=== PATIENT | female | born 2000 | race American Indian/Alaskan Native ===

== ENCOUNTER 2021-04-08 09:39 | Inpatient (IN) | payer OTHER ==
[2021-04-08 12:12] LABS: Bilirubin,Urine NEG (Negative); Blood,Urine NEG (Negative); Color,Urine Yellow (Yellow); Protein,Urine <15 mg/dL mg/dL (Negative); Urobilinogen,Urine < 2.0 mg/dL (<2.0)
[2021-04-08] MEDS ORDERED: FAMOTIDINE 20 MG TAB PO ONE (12:14)
[2021-04-08] MEDS ORDERED: HYOSCYAMINE SUBL 0.125 MG TAB SL ONE (12:14)
[2021-04-08] MEDS ORDERED: ONDANSETRON 4 MG ODT TAB PO ONE (12:14)
[2021-04-08] MEDS ORDERED: ALUM-MAG HYDROXIDE-SIMETHICONE 200-200-20MG/5ML ORAL LIQD 30 ML PO ONE (12:14)
[2021-04-08 12:36] LABS: Basophils % (Auto) 0.4 % (0.0-1.8); Eosinophils % (Auto) 0.7 % (0.0-4.3); Hemoglobin 13.8 gm/dl (10.1-14.3); Lymphocytes % (Auto) 17.1 % (13.4-35.0); Mean Corpuscular HGB Conc 34 % (30-34); Mean Corpuscular Volume 90 fl (79-97); Monocytes # (Auto) 0.3 K/mm3 (0.0-0.8); Monocytes % (Auto) 5.9 % (0.0-7.3); Platelet Count 251 K/mm3 (140-440); Red Blood Count 4.57 M/mm3 (3.65-5.03); Red Cell Distribution Width 12.9 % (13.2-15.2)
[2021-04-08 12:41] LABS: Albumin 4.8 g/dL (3.9-5); Blood Urea Nitrogen 9 mg/dL (7-17); Calcium 10.5 mg/dL (8.4-10.2); Hemolysis Index 4
[2021-04-08 12:43] LABS: BUN/Creatinine Ratio 15
[2021-04-08 12:53] LABS: Alanine Aminotransferase 1883 units/L (7-56)
--- NOTE | 2021-04-08 13:16 | Emergency Department Report ---
ED Abdominal Pain HPI - General Chief Complaint: Abdominal Pain Stated Complaint: STOMACH BACK PAIN Time Seen by Provider: 04/08/21 10:37 Source: patient Mode of arrival: Ambulatory Limitations: No Limitations - History of Present Illness Initial Comments: Patient is a 20-year-old female who presents emergency room with complaints of upper abdominal pain that began a couple days ago. Patient states that she has had similar pain before and states that in [place] she was diagnosed with acid reflux and possible ulcer. She states that she also frequently has gas pain. She denies any nausea, vomiting, diarrhea, hematochezia, melena, hematemesis, fever, urinary symptoms. No other past medical history. No allergies to medications. Severity scale (0 -10): 9 - Related Data Allergies Allergy/AdvReac Type Severity Reaction Status Date / Time No Known Allergies Allergy Unverified 04/08/21 10:21 ED Review of Systems ROS: Stated complaint: STOMACH BACK PAIN Other details as noted in HPI Comment: All other systems reviewed and negative ED Past Medical Hx - Past Medical History Previous Medical History?: Yes Hx Asthma: Yes - Surgical History Past Surgical History?: No ED Physical Exam - General Limitations: No Limitations General appearance: alert, in no apparent distress - Head Head exam: Present: atraumatic, normocephalic - Eye Eye exam: Present: normal appearance - ENT ENT exam: Present: mucous membranes moist - Respiratory Respiratory exam: Present: normal lung sounds bilaterally. Absent: respiratory distress, wheezes, rales, rhonchi, stridor, chest wall tenderness, accessory muscle use, decreased breath sounds, prolonged expiratory - Cardiovascular Cardiovascular Exam: Present: regular rate, normal rhythm, normal heart sounds. Absent: systolic murmur, diastolic murmur, rubs, gallop - GI/Abdominal GI/Abdominal exam: Present: soft, tenderness (upper abd pain ), normal bowel sounds. Absent: distended, guarding, rebound, rigid - Neurological Exam Neurological exam: Present: alert, oriented X3 - Psychiatric Psychiatric exam: Present: normal affect, normal mood - Skin Skin exam: Present: warm, dry, intact ED Course Vital Signs 04/08/21 04/08/21 10:23 17:03 Temperature 98.3 F Pulse Rate 78 Respiratory 18 16 Rate Blood Pressure 137/87 [Right] O2 Sat by Pulse 99 Oximetry - Consultations Consultation #1: 04/08/21 17:[address] Bob, GI regarding patient presentation and results, he advised to order MRCP, admit to hospitalist, order hepatitis panel, salicylate, Tylenol and he will evaluate patient tomorrow 04/08/21 17:[address] Cedeno, hospitalist who will accept and resume care of patient, will admit to hospital service ED Medical Decision Making - Lab Data Result diagrams: 04/08/21 11:26 04/08/21 11:26 - Radiology Data Radiology results: report reviewed ULTRASOUND ABDOMEN, LIMITED (RIGHT UPPER QUADRANT) INDICATION / CLINICAL INFORMATION: upper abd pain, elevated Lfts, abnormal CT. COMPARISON: CT from earlier in the day FINDINGS: PANCREAS: Visualized portion shows no significant abnormality. LIVER: No significant abnormality. GALLBLADDER: Multiple gallsto tr. No significant gallbladder wall thickening. No pericholecystic fluid. BILE DUCTS: No significant abnormality. Common bile duct measures 6 mm. FREE FLUID: None. ADDITIONAL FINDINGS: None. IMPRESSION: 1. Cholelithiasis without cholecystitis. Signer Name: Nato Gomez DO Signed: 04/08/2021 3:11 PM Workstation Name: [id number] Ordering Physician: KELLY SWANN Date of Service: 04/08/21 Procedure(s): CT abdomen pelvis w con Accession Number(s): [id number] cc: KELLY SWANN CT abdomen pelvis w con INDICATION: upper abd pain, elevated lfts OMNI 300 100 ML. COMPARISON: None TECHNIQUE: Abdominal and pelvic CT exam performed. All CT scans at this location are performed using CT dose reduction for ALARA by means of automated exposure control. FINDINGS: CT ABDOMEN and PELVIS: Lung Bases: No significant abnormality. Liver: Minimal intrahepatic biliary ductal dilation. Biliary: No calcified gallstones. There is minimal increased attenuation seen within the fundus the gallbladder which could represent small stones (sagittal imaging 83 and 84 series 602). Common bile duct appears mildly dilated at 8 mm. Spleen: No significant abnormality. Pancreas: No significant abnormality. Adrenals: No significant abnormality. Kidneys: No significant abnormality. Lymphatics: No lymphadenopathy. Vasculature: No significant abnormality. Bowel: No significant abnormality. Normal appendix. Pelvis: No significant abnormality. Osseous Structures: No aggressive osseous lesion. Additional Findings: None IMPRESSION: 1. Minimal intrahepatic and extra hepatic biliary ductal dilatation. Possible gallstones without evidence of cholecystitis. Correlate for cholestatic labs and consider right upper quadrant ultrasound Signer Name: Wilbert Cervantes MD Signed: 04/08/2021 2:20 PM Workstation Name: [email or web address] Transcribed By: REMBERTO Dictated By: Wilbert Cervantes MD Electronically Authenticated By: Wilbert Cervantes MD Signed Date/Time: 04/08/21 142 DD/ 15 TD/TT: - Medical Decision Making Patient is a 20-year-old female who presents emergency room with complaints of upper abdominal pain that began a couple days ago. Patient states that she has had similar pain before and states that in [place] she was diagnosed with acid reflux and possible ulcer. She states that she also frequently has gas pain. She denies any nausea, vomiting, diarrhea, hematochezia, melena, hematemesis, fever, urinary symptoms. No other past medical history. No allergies to medications. Vitals are normal. On exam patient has generalized upper abdominal tenderness palpation, no guarding, no rebound, no rigidity, no masses, no peritoneal signs. lab significant for elevated LFTs, no leukocytosis. CT abdomen pelvis with IV contrast: 1. Minimal intrahepatic and extra hepatic biliary ductal dilatation. Possible gallstones without evidence of cholecystitis. Correlate for cholestatic labs and consider right upper quadrant ultrasound. ultrasound right upper quadrant:IMPRESSION: 1. Cholelithiasis without cholecystitis. Spoke to Dr. Bob, GI regarding patient presentation and results, he advised to order MRCP, admit to hospitalist, order hepatitis panel, salicylate, Tylenol and he will evaluate patient tomorrow, Spoke to Dr. Lee Ann caballero, hospitalist who will accept and resume care of patient, will admit to hospital service. Discussed all findings with patient and she is agreeable with admission. Discussed case with Dr. De León, ER attending who is in agreement with plan. Critical care attestation.: If time is entered above; I have spent that time in minutes in the direct care of this critically ill patient, excluding procedure time. ED Disposition Clinical Impression: Elevated LFTs, Intrahepatic bile duct dilation Abdominal pain Qualifiers: Abdominal location: upper abdomen, unspecified Qualified Code(s): R10.10 - Upper abdominal pain, unspecified Cholelithiasis Qualifiers: Cholelithiasis location: gallbladder and bile duct Cholecystitis presence: with cholecystitis Cholecystitis acuity: acute Biliary obstruction: with biliary obstruction Qualified Code(s): K80.63 - Calculus of gallbladder and bile duct with acute cholecystitis with obstruction Disposition: [facility] Is pt being admited?: Yes Does the pt Need Aspirin: No Condition: Stable Time of Disposition: 17:14
[2021-04-08 13:31] LABS: HCG Qualitative,Urine Negative (Negative)
--- NOTE | 2021-04-08 14:24 | Cat Scan Report ---
CT abdomen pelvis w con INDICATION: upper abd pain, elevated lfts OMNI 300 100 ML. COMPARISON: None TECHNIQUE: Abdominal and pelvic CT exam performed. All CT scans at this location are performed using CT dose reduction for ALARA by means of automated exposure control. FINDINGS: CT ABDOMEN and PELVIS: Lung Bases: No significant abnormality. Liver: Minimal intrahepatic biliary ductal dilation. Biliary: No calcified gallstones. There is minimal increased attenuation seen within the fundus the g allbladder which could represent small stones (sagittal imaging 83 and 84 series 602). Common bile du ct appears mildly dilated at 8 mm. Spleen: No significant abnormality. Pancreas: No significant abnormality. Adrenals: No significant abnormality. Kidneys: No significant abnormality. Lymphatics: No lymphadenopathy. Vasculature: No significant abnormality. Bowel: No significant abnormality. Normal appendix. Pelvis: No significant abnormality. Osseous Structures: No aggressive osseous lesion. Additional Findings: None IMPRESSION: 1. Minimal intrahepatic and extra hepatic biliary ductal dilatation. Possible gallstones without evid ence of cholecystitis. Correlate for cholestatic labs and consider right upper quadrant ultrasound Signer Name: Wilbert Cervantes MD Signed: 04/08/2021 2:20 PM Workstation Name: [email or web address]
[2021-04-08] MEDS ORDERED: SODIUM CHLORIDE 0.9% 1000 ML 1,000 ML IV ONE (14:36)
[2021-04-08] MEDS ORDERED: ONDANSETRON 4 MG/2 ML INJ IV ONE ×2 (14:36→16:48)
[2021-04-08] MEDS ORDERED: MORPHINE 4 MG/1 ML INJ IV ONE ×2 (14:36→16:48)
[2021-04-08] MEDS ORDERED: hydrALAZINE 20 MG/1 ML INJ IV PRN (17:34)
[2021-04-08] MEDS ORDERED: ACETAMINOPHEN 325 MG TAB PO PRN (17:34)
--- NOTE | 2021-04-08 17:36 | History and Physical Report ---
History of Present Illness Date of examination: 04/08/21 History of present illness: Patient is a 20-year-old female who presents emergency room with complaints of upper abdominal pain that began a couple days ago. Patient states that she has had similar pain before and states that in [place] she was diagnosed with acid reflux and possible ulcer. She states that she also frequently has gas pain. She denies any nausea, vomiting, diarrhea, hematochezia, melena, hematemesis, fever, urinary symptoms. No other past medical history. No allergies to medications. Medications and Allergies Allergies Allergy/AdvReac Type Severity Reaction Status Date / Time No Known Allergies Allergy Unverified 04/08/21 10:21 Active Meds: Active Medications Acetaminophen (Acetaminophen 325 Mg Tab) 650 mg PO Q4H PRN PRN Reason: Pain MILD(1-3)/Fever >100.5/HINSON Heparin Sodium (Porcine) (Heparin 5,000 Unit/1 Ml Vial) 5,000 unit SUB-Q Q8HR DIANE Hydralazine HCl (Hydralazine 20 Mg/1 Ml Inj) 5 mg IV Q30MIN PRN PRN Reason: Hypertension Ceftriaxone Sodium (Rocephin/Ns 1 Gm/50 Ml) 1 gm in 50 mls @ 100 mls/hr IV Q12HR DIANE; Protocol Sodium Chloride (Nacl 0.9% 1000 Ml) 1,000 mls @ 100 mls/hr IV DIRECT DIANE Morphine Sulfate (Morphine 2 Mg/1 Ml Inj) 2 mg IV Q3H PRN PRN Reason: Pain, Moderate (4-6) Exam - Constitutional Vitals: Temp Pulse Resp BP Pulse Ox 98.3 F 78 16 137/87 99 04/08/21 10:23 04/08/21 10:23 04/08/21 17:03 04/08/21 10:23 04/08/21 10:23 Results - Labs CBC & Chem 7: 04/08/21 11:26 04/08/21 11:26 Labs: Abnormal lab results 04/08/21 04/08/21 04/08/21 Range/Units 11:14 11:26 11:26 RDW 12.9 L (13.2-15.2) % Lymph # (Auto) 1.0 L (1.2-5.4) K/mm3 Seg Neutrophils % 75.9 H (40.0-70.0) % Calcium 10.5 H (8.4-10.2) mg/dL Total Bilirubin 2.60 H (0.1-1.2) mg/dL AST 1250 H (5-40) units/L ALT 1883 H (7-56) units/L Alkaline Phosphatase 144 H (35-129) units/L Ur Specific [place] 1.002 L (1.003-1.030) Urine WBC (Auto) 26.0 H (0.0-6.0) /HPF Assessment and Plan Upper abdominal pain Intra and extrahepatic biliary dilation Cholelithiasis with elevated LFT History of asthma Chronic anemia DVT prophylaxis
[2021-04-08 20:48] LABS: Amphetamine Screen,Urine PRESUMPTIVE NEGATIVE; Benzodiazepines Screen,Urine PRESUMPTIVE POSITIVE; Cannabinoid Screen,Urine PRESUMPTIVE NEGATIVE; Cocaine Screen,Urine PRESUMPTIVE NEGATIVE; Methadone Screen,Urine PRESUMPTIVE NEGATIVE; Opiate Screen,Urine PRESUMPTIVE NEGATIVE
[2021-04-08 21:03] LABS: Hepatitis C Virus Antibody Non-Reactive (NonReactive)
[2021-04-08 21:12] LABS: Hepatitis B Surface Antigen Nonreactive (Negative)
[2021-04-08] MEDS ORDERED: METOCLOPRAMIDE 10 MG/2 ML INJ IV ONE (23:31)
[2021-04-08] MEDS: cefTRIAXone/NS 1 GM/50 ML 1 GM/50 ML BAG IV SCH (23:31)
[2021-04-08] MEDS: HEPARIN 5,000 UNIT/1 ML VIAL SUB-Q SCH (23:31)
[2021-04-08] MEDS ORDERED: METOCLOPRAMIDE 10 MG/2 ML INJ ONE (23:32)
[2021-04-09 05:31] LABS: Albumin 4.1 g/dL (3.9-5); Bilirubin,Direct 2.6 mg/dL (0-0.2)
[2021-04-09] MEDS: HEPARIN 5,000 UNIT/1 ML VIAL SUB-Q SCH ×3 (06:18→22:54)
--- NOTE | 2021-04-09 08:33 | Gastroenterology Consultation ---
History of Present Illness - Reason for Consult Consult date: 04/09/21 elevated lft, abd pain Requesting physician: ALIYA SALINAS - History of Present Illness Is a pleasant 20-year-old female presenting with abdominal pain She reports having issues since September Would have abdominal pain that was diagnosed as gas was given medication to help saw a different doctor given a different medication did not help so just kept on taking the gas medication She reports the pain had been controlled and then approximately 2 days ago had upper abdominal pain that was severe sharp in nature no alleviating or exacerbating factors Denies history of liver disease or gallbladder disease Reviewed patient's medication history extensively she reports no new medications just takes gas medication Obtained/updated/reviewed patient's current medications Past History Past Surgical History: No surgical history Social history: no significant social history Family history: no significant family history Medications and Allergies Allergies Allergy/AdvReac Type Severity Reaction Status Date / Time No Known Allergies Allergy Unverified 04/08/21 10:21 Active Meds: Active Medications Acetaminophen (Acetaminophen 325 Mg Tab) 650 mg PO Q4H PRN PRN Reason: Pain MILD(1-3)/Fever >100.5/HINSON Heparin Sodium (Porcine) (Heparin 5,000 Unit/1 Ml Vial) 5,000 unit SUB-Q Q8HR DIANE Last Admin: 04/09/21 06:18 Dose: 5,000 unit Documented by: Hydralazine HCl (Hydralazine 20 Mg/1 Ml Inj) 5 mg IV Q30MIN PRN PRN Reason: Hypertension Ceftriaxone Sodium (Rocephin/Ns 1 Gm/50 Ml) 1 gm in 50 mls @ 100 mls/hr IV Q24H DIANE; Protocol Last Admin: 04/08/21 23:31 Dose: 100 mls/hr Documented by: Sodium Chloride (Nacl 0.9% 1000 Ml) 1,000 mls @ 100 mls/hr IV DIRECT DIANE Morphine Sulfate (Morphine 2 Mg/1 Ml Inj) 2 mg IV Q3H PRN PRN Reason: Pain, Moderate (4-6) Review of Systems - Review of Systems All systems: negative (10 Systems reviewed and negative except as mentioned above in the history of present illness) Exam - Constitutional Vital Signs: Temp Pulse Resp BP Pulse Ox 98.3 F 65 14 99/54 100 04/08/21 10:23 04/09/21 03:00 04/09/21 03:00 04/09/21 03:00 04/09/21 03:00 General appearance: no acute distress, obese - EENT Eyes: EOM intact - Neck Neck: supple - Respiratory Respiratory effort: normal - Cardiovascular Rhythm: regular - Gastrointestinal General gastrointestinal: Present: soft, tender (Mild tenderness epigastric/right upper quadrant) - Integumentary Integumentary: Present: dry - Neurologic Neurological: alert and oriented x3 - Psychiatric Psychiatric: appropriate mood/affect - Labs CBC & Chem 7: 04/08/21 11:26 04/08/21 11:26 Lab Results: Laboratory Results - last 24 hr 04/08/21 04/08/21 04/08/21 11:14 11:14 11:26 WBC 5.9 RBC 4.57 Hgb 13.8 Hct 41.0 MCV 90 MCH 30 MCHC 34 RDW 12.9 L Plt Count 251 Lymph % (Auto) 17.1 [place] % (Auto) 5.9 Eos % (Auto) 0.7 Baso % (Auto) 0.4 Lymph # (Auto) 1.0 L [place] # (Auto) 0.3 Eos # (Auto) 0.0 Baso # (Auto) 0.0 Seg Neutrophils % 75.9 H Seg Neutrophils # 4.5 Sodium Potassium Chloride Carbon Dioxide Anion Gap BUN Creatinine Estimated GFR BUN/Creatinine Ratio Glucose Calcium Total Bilirubin Direct Bilirubin Indirect Bilirubin AST ALT Alkaline Phosphatase Total Protein Albumin Albumin/Globulin Ratio Lipase Urine Color Yellow Urine Turbidity Clear Urine pH 7.0 Ur Specific [place] 1.002 L Urine Protein <15 mg/dl Urine Glucose (UA) Neg Urine Ketones Neg Urine Blood Neg Urine Nitrite Neg Urine Bilirubin Neg Urine Urobilinogen < 2.0 Ur Leukocyte Esterase Neg Urine WBC (Auto) 26.0 H Urine RBC (Auto) 16.0 U Epithel Cells (Auto) 1.0 Urine HCG, Qual Negative Salicylates Urine Opiates Screen Presumptive negative Urine Methadone Screen Presumptive negative Acetaminophen Ur Barbiturates Screen Presumptive negative Ur Phencyclidine Scrn Presumptive negative Ur Amphetamines Screen Presumptive negative U Benzodiazepines Scrn Presumptive positive Urine Cocaine Screen Presumptive negative U Marijuana (THC) Screen Presumptive negative Drugs of Abuse Note Disclamer Hepatitis A IgM Ab Hep Bs Antigen Hep B Core IgM Ab Hepatitis C Antibody 04/08/21 04/08/21 04/08/21 11:26 17:26 17:26 WBC RBC Hgb Hct MCV MCH MCHC RDW Plt Count Lymph % (Auto) [place] % (Auto) Eos % (Auto) Baso % (Auto) Lymph # (Auto) [place] # (Auto) Eos # (Auto) Baso # (Auto) Seg Neutrophils % Seg Neutrophils # Sodium 140 Potassium 4.7 Chloride 101.4 Carbon Dioxide 28 Anion Gap 15 BUN 9 Creatinine 0.6 Estimated GFR > 60 BUN/Creatinine Ratio 15 Glucose 94 Calcium 10.5 H Total Bilirubin 2.60 H Direct Bilirubin Indirect Bilirubin AST 1250 H ALT 1883 H Alkaline Phosphatase 144 H Total Protein 7.8 Albumin 4.8 Albumin/Globulin Ratio 1.6 Lipase 23 Urine Color Urine Turbidity Urine pH Ur Specific [place] Urine Protein Urine Glucose (UA) Urine Ketones Urine Blood Urine Nitrite Urine Bilirubin Urine Urobilinogen Ur Leukocyte Esterase Urine WBC (Auto) Urine RBC (Auto) U Epithel Cells (Auto) Urine HCG, Qual Salicylates < 0.3 L Urine Opiates Screen Urine Methadone Screen Acetaminophen Ur Barbiturates Screen Ur Phencyclidine Scrn Ur Amphetamines Screen U Benzodiazepines Scrn Urine Cocaine Screen U Marijuana (THC) Screen Drugs of Abuse Note Hepatitis A IgM Ab Non-reactive Hep Bs Antigen Nonreactive Hep B Core IgM Ab Non-reactive Hepatitis C Antibody Non-reactive 04/08/21 04/09/21 17:26 04:42 WBC RBC Hgb Hct MCV MCH MCHC RDW Plt Count Lymph % (Auto) [place] % (Auto) Eos % (Auto) Baso % (Auto) Lymph # (Auto) [place] # (Auto) Eos # (Auto) Baso # (Auto) Seg Neutrophils % Seg Neutrophils # Sodium Potassium Chloride Carbon Dioxide Anion Gap BUN Creatinine Estimated GFR BUN/Creatinine Ratio Glucose Calcium Total Bilirubin 2.80 H Direct Bilirubin 2.6 H Indirect Bilirubin 0.2 AST 459 H ALT 1264 H Alkaline Phosphatase 121 Total Protein 6.5 Albumin 4.1 Albumin/Globulin Ratio 1.7 Lipase Urine Color Urine Turbidity Urine pH Ur Specific [place] Urine Protein Urine Glucose (UA) Urine Ketones Urine Blood Urine Nitrite Urine Bilirubin Urine Urobilinogen Ur Leukocyte Esterase Urine WBC (Auto) Urine RBC (Auto) U Epithel Cells (Auto) Urine HCG, Qual Salicylates Urine Opiates Screen Urine Methadone Screen Acetaminophen 5.0 L Ur Barbiturates Screen Ur Phencyclidine Scrn Ur Amphetamines Screen U Benzodiazepines Scrn Urine Cocaine Screen U Marijuana (THC) Screen Drugs of Abuse Note Hepatitis A IgM Ab Hep Bs Antigen Hep B Core IgM Ab Hepatitis C Antibody Assessment and Plan Plan: MRCP Discussion: It is interesting the patient's transaminases elevated so high, this is uncommon in simple choledocholithiasis. However, if she has significant underlying fatty liver disease that could be enough to cause this pattern of liver injury Acute hepatitis panel negative No history of new medications, drugs, Tylenol, etc. If MRCP shows choledocholithiasis she will require ERCP Update: MRCP positive for choledocholithiasis, patient will require ERCP. I will recheck to Endo and the advanced endoscopy team to determine availability hopefully she will be able go tomorrow for ERCP if not tomorrow then - Patient Problems (1) Abdominal pain Current Visit: Yes Status: Acute Qualifiers: Abdominal location: upper abdomen, unspecified Qualified Code(s): R10.10 - Upper abdominal pain, unspecified (2) Cholelithiasis Current Visit: Yes Status: Acute Qualifiers: Cholelithiasis location: gallbladder and bile duct Cholecystitis presence: with cholecystitis Cholecystitis acuity: acute Biliary obstruction: with biliary obstruction Qualified Code(s): K80.63 - Calculus of gallbladder and bile duct with acute cholecystitis with obstruction (3) Elevated LFTs Current Visit: Yes Status: Acute (4) Intrahepatic bile duct dilation Current Visit: Yes Status: Acute
--- NOTE | 2021-04-09 09:06 | Ultrasound Report ---
ULTRASOUND ABDOMEN, LIMITED (RIGHT UPPER QUADRANT) INDICATION / CLINICAL INFORMATION: upper abd pain, elevated Lfts, abnormal CT. COMPARISON: CT from earlier in the day FINDINGS: PANCREAS: Visualized portion shows no significant abnormality. LIVER: No significant abnormality. GALLBLADDER: Multiple gallstones. No significant gallbladder wall thickening. No pericholecystic flui d. BILE DUCTS: No significant abnormality. Common bile duct measures 6 mm. FREE FLUID: None. ADDITIONAL FINDINGS: None. IMPRESSION: 1. Cholelithiasis without cholecystitis. Signer Name: Nato Gomez DO Signed: 04/08/2021 4:11 PM Workstation Name: [id number]
--- NOTE | 2021-04-09 10:57 | Magnetic Resonance Report ---
MRI ABDOMEN WITHOUT CONTRAST INDICATION / CLINICAL INFORMATION: abd pain, cholelithiasis, elevated LFTs. TECHNIQUE: Multiplanar, multisequence series were obtained through the abdomen. COMPARISON: Right upper quadrant ultrasound and CT of the abdomen and pelvis dated 04/08/2021 FINDINGS: LOWER CHEST: No significant abnormality. LIVER: No significant abnormality. GALLBLADDER: Redemonstrated stones within the gallbladder lumen. BILE DUCTS: At the distal portion of the common bile duct there is abrupt termination of signal, prox imal to the ducts insertion at the ampulla of Vater. There are signal voids noted, specifically axial FIESTA image 17, likely representing choledocholithiasis. PANCREAS: No significant abnormality. SPLEEN: No significant abnormality. ADRENALS: No significant abnormality. RIGHT KIDNEY / URETER: No significant abnormality. LEFT KIDNEY / URETER: No significant abnormality. STOMACH / VISUALIZED BOWEL: No significant abnormality. PERITONEUM: No free fluid. No free air. No fluid collection. LYMPH NODES: No significant adenopathy. AORTA / ARTERIES: No significant abnormality. IVC / VEINS: No significant abnormality. ADDITIONAL FINDINGS: None. SKELETAL SYSTEM: No significant abnormality. IMPRESSION: 1. Choledocholithiasis. 2. Cholelithiasis. Signer Name: Nato Gomez DO Signed: 04/09/2021 10:53 AM Workstation Name: [id number]
--- NOTE | 2021-04-09 14:42 | Progress Note ---
Assessment and Plan Upper abdominal pain Intra and extrahepatic biliary dilation Cholelithiasis with elevated LFT History of asthma Chronic anemia DVT prophylaxis Daily clinical course: 04/09/21: Plan for ERCP tomorrow, continue to follow LFT Subjective Date of service: 04/09/21 Objective - Constitutional Vitals: Vital Signs - 12hr 04/09/21 04/09/21 04/09/21 02:46 03:00 03:30 Pulse Rate 65 65 66 Respiratory 14 14 17 Rate Blood Pressure 131/71 99/54 99/54 O2 Sat by Pulse 100 100 97 Oximetry 04/09/21 04/09/21 04/09/21 04:00 04:30 05:00 Pulse Rate 64 65 65 Respiratory 14 15 13 Rate Blood Pressure 99/54 107/74 104/74 O2 Sat by Pulse 98 99 100 Oximetry 04/09/21 04/09/21 04/09/21 05:30 06:00 06:30 Pulse Rate 58 L 71 72 Respiratory 14 16 18 Rate Blood Pressure 120/76 138/75 118/83 O2 Sat by Pulse 100 99 100 Oximetry 04/09/21 04/09/21 04/09/21 07:00 07:30 07:38 Pulse Rate 72 67 Respiratory 14 21 16 Rate Blood Pressure 118/83 117/63 O2 Sat by Pulse 100 100 98 Oximetry 04/09/21 08:00 Pulse Rate 91 H Respiratory 14 Rate Blood Pressure 105/62 O2 Sat by Pulse 100 Oximetry - Labs CBC & Chem 7: 04/08/21 11:26 04/10/21 04:39 Labs: Abnormal lab results 04/08/21 04/08/21 04/09/21 Range/Units 17:26 17:26 04:42 Total Bilirubin 2.80 H (0.1-1.2) mg/dL Direct Bilirubin 2.6 H (0-0.2) mg/dL AST 459 H (5-40) units/L ALT 1264 H (7-56) units/L Salicylates < 0.3 L (2.8-20.0) mg/dL Acetaminophen 5.0 L (10.0-30.0) ug/mL
[2021-04-09] MEDS: cefTRIAXone/NS 1 GM/50 ML 1 GM/50 ML BAG IV SCH (22:54)
[2021-04-09] MEDS: SODIUM CHLORIDE 0.9% 1000 ML 1,000 ML IV SCH (22:55)
[2021-04-09] MEDS: MORPHINE 2 MG/1 ML INJ IV PRN (22:56)
[2021-04-09] MEDS ORDERED: MELATONIN 5 MG TAB PO PRN (23:41)
[2021-04-10] MEDS: ONDANSETRON 4 MG/2 ML INJ IV PRN ×3 (00:01→19:59)
[2021-04-10 06:33] LABS: Blood Urea Nitrogen 9 mg/dL (7-17); Calcium 9.3 mg/dL (8.4-10.2); Hemolysis Index 3
[2021-04-10 06:44] LABS: BUN/Creatinine Ratio 15
[2021-04-10 07:03] LABS: Alanine Aminotransferase 821 units/L (7-56)
[2021-04-10] MEDS: HEPARIN 5,000 UNIT/1 ML VIAL SUB-Q SCH ×3 (07:37→21:35)
[2021-04-10] MEDS: MORPHINE 2 MG/1 ML INJ IV PRN ×2 (10:27→22:28)
[2021-04-10] MEDS: SODIUM CHLORIDE 0.9% 1000 ML 1,000 ML IV SCH ×2 (10:41→22:26)
[2021-04-10] MEDS ORDERED: WATER FOR IRRIG STERILE 1,000 ML BOTTLE ONE (10:44)
[2021-04-10] MEDS ORDERED: WATER FOR IRRIG STERILE 250 ML BOTTLE IR ONE (10:45)
[2021-04-10] MEDS ORDERED: POTASSIUM CHLORIDE ER 20 MEQ TAB PO SCH (11:00)
--- NOTE | 2021-04-10 11:22 | Gastroenterology Progress Note ---
Assessment and Plan Plan: ERCP tomorrow Discussion: Patient appears to have choledocholithiasis is the source of her symptoms with underlying fatty liver disease the source of the acute rise in LFTs LFTs continue to trend down Patient would benefit from ERCP, coordinating with advanced endoscopy physicians and Endo suite first available time the procedure can be done as tomorrow at 7:30 AM therefore I wrote her for a diet today and she will be n.p.o. past midnight tonight for ERCP tomorrow - Patient Problems (1) Abdominal pain Current Visit: Yes Status: Acute Qualifiers: Abdominal location: upper abdomen, unspecified Qualified Code(s): R10.10 - Upper abdominal pain, unspecified (2) Cholelithiasis Current Visit: Yes Status: Acute Qualifiers: Cholelithiasis location: gallbladder and bile duct Cholecystitis presence: with cholecystitis Cholecystitis acuity: acute Biliary obstruction: with biliary obstruction Qualified Code(s): K80.63 - Calculus of gallbladder and bile duct with acute cholecystitis with obstruction (3) Elevated LFTs Current Visit: Yes Status: Acute (4) Intrahepatic bile duct dilation Current Visit: Yes Status: Acute Subjective Date of service: 04/10/21 Principal diagnosis: Choledocholithiasis Interval history: Patient reports that she had return of her abdominal pain right upper quadrant sharp severe, she is getting pain medication now Objective - Constitutional Vitals: Temp Pulse Resp BP Pulse Ox 99.2 F 75 18 76/53 97 04/10/21 08:26 04/10/21 08:26 04/10/21 08:26 04/10/21 08:26 04/10/21 08:26 General appearance: no acute distress - EENT Eyes: EOM intact ENT: hearing intact - Neck Neck: supple - Respiratory Respiratory effort: normal - Cardiovascular Rhythm: regular - Gastrointestinal General gastrointestinal: Present: soft, tender - Integumentary Integumentary: Present: dry - Neurologic Neurological: alert and oriented x3 - Psychiatric Psychiatric: appropriate mood/affect - Labs CBC & Chem 7: 04/08/21 11:26 04/10/21 04:39 Labs: Laboratory Results - last 24 hr 04/10/21 04:39 Sodium 139 Potassium 3.5 L D Chloride 104.2 Carbon Dioxide 23 Anion Gap 15 BUN 9 Creatinine 0.6 Estimated GFR > 60 BUN/Creatinine Ratio 15 Glucose 115 H Calcium 9.3 Total Bilirubin 2.50 H AST 182 H ALT 821 H Alkaline Phosphatase 110 Total Protein 7.0 Albumin 4.0 Albumin/Globulin Ratio 1.3
--- NOTE | 2021-04-10 15:19 | Progress Note ---
Assessment and Plan Upper abdominal pain Intra and extrahepatic biliary dilation Cholelithiasis with elevated LFT History of asthma Chronic anemia DVT prophylaxis Daily clinical course: 04/09/21: Plan for ERCP tomorrow, continue to follow LFT 04/10/21: ERCP postponed until tomorrow, continue to follow LFT. Patient remains in abdominal pain and requiring IV pain medications Subjective Date of service: 04/10/21 Principal diagnosis: Choledocholithiasis Objective - Constitutional Vitals: Vital Signs - 12hr 04/10/21 04/10/21 04/10/21 03:55 04:41 08:26 Temperature 99.6 F 99.2 F Pulse Rate 86 84 75 Pulse Rate [ Apical] Respiratory 16 18 Rate Blood Pressure 99/40 76/53 Blood Pressure 92/45 [Right] O2 Sat by Pulse 99 99 97 Oximetry 04/10/21 04/10/21 04/10/21 09:33 11:52 14:00 Temperature Pulse Rate 79 79 Pulse Rate [ Apical] Respiratory Rate Blood Pressure 110/72 140/87 Blood Pressure [Right] O2 Sat by Pulse 98 Oximetry 04/10/21 14:50 Temperature Pulse Rate Pulse Rate [ 77 Apical] Respiratory 17 Rate Blood Pressure Blood Pressure [Right] O2 Sat by Pulse 100 Oximetry - Labs CBC & Chem 7: 04/08/21 11:26 04/10/21 04:39 Labs: Abnormal lab results 04/10/21 Range/Units 04:39 Potassium 3.5 L D (3.6-5.0) mmol/L Glucose 115 H (65-100) mg/dL Total Bilirubin 2.50 H (0.1-1.2) mg/dL AST 182 H (5-40) units/L ALT 821 H (7-56) units/L
[2021-04-10] MEDS ORDERED: diphenhydrAMINE 25 MG CAP PO ONE (21:00)
[2021-04-10] MEDS: cefTRIAXone/NS 1 GM/50 ML 1 GM/50 ML BAG IV SCH (21:38)
[2021-04-11] MEDS: HEPARIN 5,000 UNIT/1 ML VIAL SUB-Q SCH ×3 (06:15→21:28)
[2021-04-11] MEDS ORDERED: SODIUM CHLORIDE 0.9% 100 ML ONE (07:23)
[2021-04-11] MEDS ORDERED: SODIUM CHLORIDE 0.9% 1000 ML 1,000 ML IV SCH (07:30)
--- NOTE | 2021-04-11 07:37 | Anesthesia Consultation ---
Anesthesia Consult and Med Hx Date of service: 04/11/21 - Airway Anesthetic Teeth Evaluation: Good ROM Head & Neck: Adequate Mental/Hyoid Distance: Adequate Mallampati Class: Class III Intubation Access Assessment: Possibly Difficult - Pre-Operative Health Status ASA Pre-Surgery Classification: ASA3 Proposed Anesthetic Plan: MAC - Pulmonary Hx Asthma: Yes - Gastrointestinal Hx Ulcer: Yes Hx Gastroesophageal Reflux Disease: Yes - Endocrine Hx Liver Disease: Yes (choledocholithiasis) - Hematic Hx Anemia: Yes - Other Systems Hx Cancer: No Hx Obesity: Yes (BMI 43.9)
--- NOTE | 2021-04-11 07:38 | Anesthesia Day of Surgery ---
Anesthesia Day of Surgery - Day of Surgery Patient Examined: Yes Patient H&P Reviewed: Yes Patient is NPO: Yes
[2021-04-11] MEDS ORDERED: propofoL 200 MG/20 ML VIAL IV ONE ×3 (07:39→08:38)
[2021-04-11] MEDS ORDERED: HYDROmorphone 1 MG/1 ML INJ ONE (07:40)
[2021-04-11] MEDS ORDERED: MIDAZOLAM 2 MG/2 ML INJ ONE (07:40)
[2021-04-11] MEDS ORDERED: LIDOCAINE MPF (2%) 20 MG/1 ML VIAL 5 ML ONE (07:41)
[2021-04-11] MEDS ORDERED: ONDANSETRON 4 MG/2 ML INJ ONE (08:56)
--- NOTE | 2021-04-11 09:08 | Post Operative Note ---
Pre-op diagnosis: Abnl MRCP, gallstones Post-op diagnosis: other (Choledocholithiasis) Findings: 1. Nml ampulla 2. PD not cannulated/injected 3. CBD cannulated with Fusiontome/0.035 guidewire - Mildly dilated (6mm) - Distal filling defect present - Medium sphincterotomy - 9mm ballon x 3 with removal of 2 small yellow GS (3mm) and copious sludge - Cholangiogram at end of procedure without defect 4. Cystic duct/GB fill with contrast/no obstruction. Procedure: ERCP with biliary sphincterotomy and balloon sweep Anesthesia: MAC Surgeon: MIGUEL RANGEL Estimated blood loss: minimal Pathology: none Specimen disposition: to lab Condition: stable Disposition: floor (Recs: 1. Clear liquids, advance as tolerated. 2. OK to disharge when LFTs improved. 3. No signs of cholecystitis on imaging and no retained stones; no need for antibiotics and patient may f/u with surgery as an outpatient.)
--- NOTE | 2021-04-11 09:31 | Operative Report ---
DATE OF SURGERY: 04/11/2021 PROCEDURE PERFORMED: Endoscopic retrograde cholangiopancreatography with biliary sphincterotomy and balloon sweeping of the common bile duct. PREOPERATIVE DIAGNOSIS: Choledocholithiasis. POSTOPERATIVE DIAGNOSIS: Choledocholithiasis. ENDOSCOPIST: Ranjeet Horne MD INSTRUMENT: The Olympus video endoscope. MEDICATIONS: MAC anesthesia by [facility]. COMPLICATIONS: No apparent complications. ESTIMATED BLOOD LOSS: Minimal. SPECIMENS: None. IMPLANTS: None. ASSISTANTS: None. CONDITION AT COMPLETION: Stable. TECHNIQUE: The patient was informed of the risks and benefits of the procedure. She signed the informed consent to proceed. She was placed in the prone position. The above sedative medications were given. Her vital signs remained stable throughout the procedure. The instrument was advanced from the mouth to the second portion of the duodenum under direct visualization. At that point, the bowel was insufflated. The ampulla was normal in shape and size. The common bile duct was cannulated using a Fusion sphincterotome and a 0.035 guidewire. Cholangiogram showed a mild dilation to 6 mm, and a distal filling defect consistent with a gallstone. A medium-sized sphincterotomy was performed. A 9 mm balloon was swept 3 times through the common hepatic and common bile duct with removal of two 3 mm gallstones. They were yellowish, as well as a copious amount of biliary sludge with fragmented stones. A cholangiogram at the end of the procedure showed no retained stones. FINDINGS: 1. Normal appearing ampulla. 2. Pancreatic duct was not cannulated or injected. 3. Common bile duct cannulated using a Fusion sphincterotome and a 0.035 guidewire. A. The common bile duct was mildly dilated to 6 mm, and there was a distal filling defect. B. Medium sized sphincterotomy was performed. C. A 9 mm balloon was swept 3 times through the common hepatic and common bile duct with removal of 2 small gallstones (3 mm) and copious sludge. D. A cholangiogram at the end of the procedure shows no residual filling defect. 4. The cystic duct and the gallbladder showed no obstruction and filled with contrast. RECOMMENDATIONS: 1. Clear liquid diet and advance as tolerated. 2. Okay to discharge the patient home when liver enzymes are improved. 3. No signs of cholecystitis on the imaging studies and there was no evidence of a retained stone; there was no need for antibiotics and the patient may follow up with surgery as an outpatient. TID: [id number] RECEIPT: [id number] SAMARIA/ELAYNE
--- NOTE | 2021-04-11 10:44 | Post Anesthesia Evaluation ---
- Post Anesthesia Evaluation Patient Participated: Yes Airway Patent: Yes Stable Respiratory Function: Yes Nausea/Vomiting: No Temp > 96.8F: Yes Pain Manageable: Yes Adequeate Hydration: Yes Anesthesia Complications: No
--- NOTE | 2021-04-11 12:42 | Fluoroscopy Report ---
INTRAOPERATIVE FLUOROSCOPY: ERCP INDICATION: GALLSTONES. TECHNIQUE: Intraoperative spot images were obtained during the procedure. FINDINGS: No unexpected intraoperative findings. Sphincterotomy and duct stone removal was performed. We see pr ziadure note for details. Fluoroscopy Time: 1 minute 51 seconds. Fluoroscopy Images: 12. Signer Name: Kaden Lopez MD Signed: 04/11/2021 12:37 PM Workstation Name: [id number]
[2021-04-11] MEDS ORDERED: POTASSIUM CHLORIDE ER 20 MEQ TAB PO SCH (13:00)
--- NOTE | 2021-04-11 16:49 | Progress Note ---
Assessment and Plan Upper abdominal pain Intra and extrahepatic biliary dilation Cholelithiasis with elevated LFT History of asthma Chronic anemia DVT prophylaxis Daily clinical course: 04/09/21: Plan for ERCP tomorrow, continue to follow LFT 04/11/21: s/p ERCP with biliary sphincterotomy and balloon sweep today. Initiated on clear liquid diet. Continue to follow LFT. If LFTs remain stable possible discharge tomorrow Subjective Date of service: 04/11/21 Principal diagnosis: Choledocholithiasis Objective - Constitutional Vitals: Vital Signs - 12hr 04/11/21 04/11/21 04/11/21 07:30 09:01 09:11 Temperature 98.9 F 98.4 F Pulse Rate 96 H 96 H 91 H Respiratory 14 12 16 Rate Blood Pressure 129/88 127/81 136/88 O2 Sat by Pulse 99 97 98 Oximetry 04/11/21 04/11/21 04/11/21 09:21 09:31 09:48 Temperature 98.5 F Pulse Rate 80 81 75 Respiratory 17 13 18 Rate Blood Pressure 138/91 148/91 150/93 O2 Sat by Pulse 97 98 98 Oximetry 04/11/21 15:49 Temperature 99.2 F Pulse Rate 72 Respiratory 18 Rate Blood Pressure 111/59 O2 Sat by Pulse 96 Oximetry - Labs CBC & Chem 7: 04/08/21 11:26 04/10/21 04:39
[2021-04-11] MEDS: MORPHINE 2 MG/1 ML INJ IV PRN (21:28)
[2021-04-11] MEDS: cefTRIAXone/NS 1 GM/50 ML 1 GM/50 ML BAG IV SCH (21:28)
[2021-04-12 05:42] LABS: Alanine Aminotransferase 565 units/L (7-56); Albumin 4.1 g/dL (3.9-5); Blood Urea Nitrogen 6 mg/dL (7-17); Calcium 9.7 mg/dL (8.4-10.2); Hemolysis Index 3
[2021-04-12 05:44] LABS: BUN/Creatinine Ratio 10
[2021-04-12] MEDS: HEPARIN 5,000 UNIT/1 ML VIAL SUB-Q SCH ×2 (06:17→15:52)
--- NOTE | 2021-04-12 14:30 | Discharge Summary ---
Providers - Providers Date of Admission: 04/10/21 16:22 Date of discharge: 04/12/21 Attending physician: SIMEON AMEZCUA 04/08/21 17:08 Consult to Physician [CONS] Stat Comment: Consulting Provider: AMOS MADISON Physician Instructions: Reason For Exam: cholelithiasis, elevated LFTs, abd pain Primary care physician: [employer] Hospitalization Condition: Stable Final Discharge Diagnosis (Prints w/discharge instructions): Upper abdominal pain due to choledocholithiasis status post ERCP. Intra and extrahepatic biliary dilation. Cholelithiasis with elevated LFT. History of asthma Time spent for discharge: 34 minutes Core Measure Documentation - Palliative Care Palliative Care/ Comfort Measures: Not Applicable - Core Measures Any of the following diagnoses?: none Exam - Constitutional Vitals: Temp Pulse Resp BP Pulse Ox 99.1 F 69 20 91/38 97 04/12/21 08:39 04/12/21 08:39 04/12/21 08:39 04/12/21 08:39 04/12/21 08:39 Plan Activity: advance as tolerated Diet: low fat, low salt Additional Instructions: Follow-up with PCP in 1 week. Follow-up with general surgeon possible cholecystectomy in 2 weeks. Repeat LFT in 1 week Follow up with: ELEANOR AGUIRRE MD [Primary Care Provider] - 3-5 Days CHAITANYA MASTERS MD [Staff Physician] - 7 Days Prescriptions: Ibuprofen [Motrin 600 MG tab] 600 mg PO Q8H PRN #14 tablet PRN Reason: Pain
[2021-04-12 15:22] VITALS: BP 124/65
== END 2021-04-12 16:56 | disposition home or self-care (01) | DRG 445 ==
LOC: ED 09:39 → 4A 17:14 → OBSVTOIN 04-10 16:22
PROVIDERS: ADMIT Internal Medicine; ATTEND Internal Medicine
PROC: 0FC98ZZ Extirpation of Matter from Common Bile Duct, Via Natural or Artificial Opening Endoscopic (ICD-10-PCS; principal; 2021-04-11)
PROC: 0FC78ZZ Extirpation of Matter from Common Hepatic Duct, Via Natural or Artificial Opening Endoscopic (ICD-10-PCS; 2021-04-11)
PROC: BF141ZZ Fluoroscopy of Gallbladder, Bile Ducts and Pancreatic Ducts using Low Osmolar Contrast (ICD-10-PCS; 2021-04-11)
DX: K80.63 Calculus of gallbladder and bile duct with acute cholecystitis with obstruction (principal); Z68.41 Body mass index [BMI] 40.0-44.9, adult; J45.909 Unspecified asthma, uncomplicated; D64.9 Anemia, unspecified; E66.9 Obesity, unspecified
CPT/HCPCS: 36415; 74177; 74181; 74328; 76705; 80053; 80074; 80076; 80307; 80320; 81001; 81025; 83690; 85025; 87086; G0378; C1726; G0480; J0696; J1170; J1644; J2250; J2270; J2405; J2704; J2765; J7030; Q0162; Q9967